=== PATIENT | male | born 1990 | race Caucasian/White ===

== ENCOUNTER 2023-08-31 23:19 | Emergency (ER) | payer OTHER ==
[~2023-08-31] VITALS: Ht 177.8 cm; Wt 123.8 kg
[2023-09-01] MEDS ORDERED: TOPROL XL50 M1 PO (01:41)
[2023-09-01] MEDS ORDERED: AMLODIPINE BESYL5 MG PO (01:41)
[2023-09-01 02:00] VITALS: BP 143/91
[2023-09-01] MEDS ORDERED: Diphth,Pertuss(Acell),Tet Vac 0.5 ML VIAL IM ONE (02:25)
[2023-09-01] MEDS ORDERED: HYDROcodone 5-APAP 325 TAB PO ONE (02:30)
[2023-09-01] MEDS ORDERED: Cephalexin Monohydrate 500 MG Cap PO ONE (02:30)
[2023-09-01] MEDS ORDERED: HYDR1TAB94 PO (04:08)
[2023-09-01] MEDS ORDERED: CEPH500 PO (04:08)
== END 2023-09-01 04:17 | disposition home or self-care (01) ==
LOC: ER 23:19
DX: S62.631B Displaced fracture of distal phalanx of left index finger, initial encounter for open fracture (principal); W26.0XXA Contact with knife, initial encounter; Z23 Encounter for immunization; Z79.899 Other long term (current) drug therapy
CPT/HCPCS: 12001; 73140; 90471; 90715; 99283-25; A9270

== ENCOUNTER → 2024-02-14 | Outpatient (CLI) | payer OTHER ==
[~2024-02-14] MED LIST: AMLODIPINE BESYL5 MG PO; CEPH500 PO; HYDR1TAB94 PO; TOPROL XL50 M1 PO
== END | disposition home or self-care (01) ==
LOC: LAB SHORT 15:43 → LAB 15:43
DX: J03.90 Acute tonsillitis, unspecified (principal)
CPT/HCPCS: 87081; 87147